=== PATIENT | female | born 1960 | race Caucasian/White ===

== ENCOUNTER → 2019-03-04 | Outpatient (CLI) | payer OTHER ==
[~2019-03-04] MED LIST: ALBU8.5H8 IH; ENAL1TAB11 PO; METO50TA18 PO
== END | disposition home or self-care (01) ==
LOC: RAH 11:15
PROVIDERS: ATTEND Nurse Practitioner Adult Health
DX: Z13.6 Encounter for screening for cardiovascular disorders (principal)
CPT/HCPCS: 75571

== ENCOUNTER → 2022-04-12 | Outpatient (CLI) | payer BC ==
[2022-04-12 11:44] LABS: CREATININE 0.8 mg/dL (0.5-1.5)
== END | disposition home or self-care (01) ==
LOC: LAB 10:54
PROVIDERS: ATTEND Nurse Practitioner Adult Health
DX: R53.83 Other fatigue (principal)
CPT/HCPCS: 36415; 80048

== ENCOUNTER → 2022-04-13 | Outpatient (CLI) | payer BC, OTHER ==
[~2022-04-13] MED LIST changes: +IOHEXOL-350 50ML VIAL IV ONE
== END | disposition home or self-care (01) ==
LOC: RAH 10:00
PROVIDERS: ATTEND Nurse Practitioner Adult Health
DX: R53.83 Other fatigue (principal)
CPT/HCPCS: 70470; Q9967

== ENCOUNTER 2023-02-07 12:15 | Emergency (ER) | payer BC ==
[~2023-02-07] VITALS: Ht 162.6 cm; Wt 74.8 kg
[~2023-02-07 12:15] MED LIST changes: -IOHEXOL-350 50ML VIAL IV ONE
[2023-02-07] MEDS ORDERED: KETOROLAC 15MG/ML VIAL (15MG/ML) IM ONE (16:00)
[2023-02-07 18:28] VITALS: BP 132/78
== END 2023-02-07 18:30 | disposition home or self-care (01) ==
LOC: EDH 12:15
DX: S82.144A Nondisplaced bicondylar fracture of right tibia, initial encounter for closed fracture (principal); W01.0XXA Fall on same level from slipping, tripping and stumbling without subsequent striking against object, initial encounter; Y93.89 Activity, other specified; Y92.89 Other specified places as the place of occurrence of the external cause; Y99.8 Other external cause status; E78.00 Pure hypercholesterolemia, unspecified; I10 Essential (primary) hypertension; J45.909 Unspecified asthma, uncomplicated
CPT/HCPCS: 99284; 29505; 73562 ×2; 96372; J1885

== ENCOUNTER → 2023-03-01 | Outpatient (CLI) | payer BC | END | disposition home or self-care (01) | LOC: RAH 11:10 | PROVIDERS: ATTEND Physical Medicine & Rehabilitation | DX: S83.512A Sprain of anterior cruciate ligament of left knee, initial encounter (principal); M25.562 Pain in left knee; R26.2 Difficulty in walking, not elsewhere classified; X58.XXXA Exposure to other specified factors, initial encounter; Y93.89 Activity, other specified; Y92.89 Other specified places as the place of occurrence of the external cause; Y99.8 Other external cause status | CPT/HCPCS: 73721 ==

== ENCOUNTER → 2025-04-27 | Outpatient (CLI) | payer MEDICARE ==
--- NOTE | 2025-04-28 00:20 | HMCIMG ---
EXAM: CR Left Shoulder, 2 views. CLINICAL HISTORY: Pain. COMPARISON: None provided. FINDINGS: No acute fracture or aggressive appearing osseous lesion. Unremarkable joint spaces. The soft tissues are unremarkable. IMPRESSION: 1. No acute bony changes. /[place]
--- NOTE | 2025-04-28 07:42 | HMCIMG ---
EXAM: CR Thoracic Spine, 3 views. CLINICAL HISTORY: Pain. COMPARISON: None provided. FINDINGS: Thoracic alignment is within normal limits. T9-T10, T10-T11, T11-T12 and T12-L1 intervertebral disc heights are reduced. Osteophytic lipping of articular margins of mid and lower thoracic spine is seen. Anterior wedge compression of T12 vertebral body is noted. Generalized osteopenia is seen. Soft tissues are within normal limits. IMPRESSION: T9-T10, T10-T11, T11-T12 and T12-L1 intervertebral disc heights are reduced. Osteophytic lipping of articular margins of mid and lower thoracic spine is seen. Anterior wedge compression of T12 vertebral body is noted. Generalized osteopenia is seen. /[place]
--- NOTE | 2025-04-28 07:42 | HMCIMG ---
EXAM: CR Cervical spine, 3 views. CLINICAL HISTORY: Pain. COMPARISON: None provided. FINDINGS: Straightening of cervical spine is noted. Osteophytic lipping of articular margin is noted. C4-C5, C5-C6, C6-C7 intervertebral disc heights are reduced. Generalized osteopenia is seen. Normal vertebral body heights. No acute fracture. The prevertebral soft tissues are within normal limits. The included lungs are clear. IMPRESSION: Straightening of cervical spine is noted. Osteophytic lipping of articular margin is noted. C4-C5, C5-C6, C6-C7 intervertebral disc heights are reduced. Generalized osteopenia is seen. /[place]
== END | disposition home or self-care (01) ==
LOC: RAH 10:55
PROVIDERS: ATTEND Physician Assistant
DX: M85.89 Other specified disorders of bone density and structure, multiple sites (principal); M54.6 Pain in thoracic spine; M25.512 Pain in left shoulder; M25.812 Other specified joint disorders, left shoulder; M54.2 Cervicalgia
CPT/HCPCS: 72050; 72070; 73030

== ENCOUNTER → 2025-05-20 | Outpatient (CLI) | payer MEDICARE ==
--- NOTE | 2025-05-20 19:49 | HMCIMG ---
EXAM: MR LEFT SHOULDER WITHOUT CONTRAST CLINICAL HISTORY: 65-year-old female with pain in the left shoulder. TECHNIQUE: Multiplanar multisequence magnetic resonance images were obtained WITHOUT contrast. CONTRAST: None COMPARISON: Prior XR shoulder dated 04/27/2025 at 11:36 am. FINDINGS: JOINTS: Moderate AC joint degenerative changes with capsular hypertrophy and encroachment on the supraspinatus. Subchondral cysts of the left greater tuberosity. No dislocation or significant effusion. BONE: Subchondral cysts of the left greater tuberosity. No acute fracture or focal osseous lesion. SOFT TISSUES: Full-thickness tear of the biceps tendon. Moderate tendinopathy of the supraspinatus and infraspinatus. Findings better appreciated from prior XR shoulder dated 04/27/2025 at 11:36 am. IMPRESSION: 1. Full-thickness tear of the biceps tendon. 2. Moderate tendinopathy of the supraspinatus and infraspinatus. 3. Moderate AC joint degenerative changes with capsular hypertrophy and encroachment on the supraspinatus. 4. Subchondral cysts of the left greater tuberosity. /[place]
== END | disposition home or self-care (01) ==
LOC: RAH 12:45
PROVIDERS: ATTEND Physical Medicine & Rehabilitation
DX: S46.212A Strain of muscle, fascia and tendon of other parts of biceps, left arm, initial encounter (principal); M25.512 Pain in left shoulder; M75.42 Impingement syndrome of left shoulder; M25.812 Other specified joint disorders, left shoulder; M75.22 Bicipital tendinitis, left shoulder; M25.862 Other specified joint disorders, left knee; M67.912 Unspecified disorder of synovium and tendon, left shoulder; M19.012 Primary osteoarthritis, left shoulder; X58.XXXA Exposure to other specified factors, initial encounter; Y93.89 Activity, other specified; Y92.89 Other specified places as the place of occurrence of the external cause; Y99.8 Other external cause status
CPT/HCPCS: 73221